=== PATIENT | female | born 1965 | race Two or more races ===

== ENCOUNTER 2018-01-31 19:44 | Emergency (ER) | payer OTHER ==
[~2018-01-31] VITALS: Ht 162.6 cm; Wt 81.6 kg
[2018-01-31] MEDS ORDERED: SODIUM CHLORIDE 0.9% 500 ML IVB ONE (20:23)
[2018-01-31 20:50] LABS: Basophils # (auto) 0.1 uL; Eosinophils # (auto) 0.2 uL; Eosinophils % (auto) 2.5 % (0.0-7.0); Hematocrit 39.2 % (36.0-46.0); Hemoglobin 12.9 g/dL (12.2-16.2); Lymphocytes # (auto) 1.2 uL; Lymphocytes % (auto) 14.7 % (10.0-50.0); Mean Corpuscular Hemoglobin 30.9 pg (28.0-32.0); Mean Corpuscular Hgb Conc. 32.9 g/dL (32.0-36.0); Monocytes # (auto) 0.6 uL; Monocytes % (auto) 6.5 % (0.0-12.0); Neutrophils # (auto) 6.4 uL; Neutrophils % (auto) 75.3 % (37.0-80.0); Platelet Count (auto) 248 10^3/uL (140-450); Red Blood Cells 4.17 10^6/uL (4.0-5.20); Red Cell Distribution Width 17.4 % (11.8-14.3); White Blood Cell 8.5 10^3/uL (4.4-10.8)
[2018-01-31 21:05] LABS: Acetaminophen < 2.0 ug/mL (10-30); Salicylate < 1.7 mg/dL (2.8-20.0)
[2018-01-31 21:06] LABS: Albumin 3.2 g/dL (3.4-5.0); Anion Gap 8 (5-15); Blood Urea Nitrogen 21 mg/dL (7-18); Calcium 8.2 mg/dL (8.5-10.1); Carbon Dioxide 18 mmol/L (21-32); Chloride 122 mmol/L (98-107); Glucose 124 mg/dL (74-106); Sodium 148 mmol/L (136-145)
[2018-01-31 21:10] LABS: Alanine Aminotransferase 24 U/L (13-56); Alkaline Phosphatase 80 U/L (45-117); Aspartate Aminotransferase 26 U/L (15-37); BUN/Creatinine Ratio 25.9; Bilirubin, Total 0.3 mg/dL (0.2-1.0); Blood Alcohol < 3.0 mg/dL (0-5); GFR African American 95 mL/min; GFR Non-African American 79 mL/min
[2018-01-31 22:08] LABS: Alcohol, Urine < 3.0 mg/dL (0-5); Amphetamine Screen, Urine NEGATIVE (NEGATIVE); Barbiturate Scree,Urine NEGATIVE (NEGATIVE); Benzodiazephine Screen, Urine NEGATIVE (NEGATIVE); Cannabinoid Screen, Urine NEGATIVE (NEGATIVE); Cocaine Screen, Urine NEGATIVE (NEGATIVE); Opiate Scree,Urine NEGATIVE (NEGATIVE); Phencyclidine Screen, Urine NEGATIVE (NEGATIVE)
[2018-02-01 09:45] LABS: Albumin 2.9 g/dL (3.4-5.0); Calcium 8.2 mg/dL (8.5-10.1); Potassium 3.8 mmol/L (3.5-5.1)
[2018-02-01 09:48] LABS: BUN/Creatinine Ratio 21.9; Bilirubin, Total 0.3 mg/dL (0.2-1.0); Total Protein 6.4 g/dL (6.4-8.2)
[2018-02-01 14:48] VITALS: BP 142/73
== END 2018-02-01 14:57 | disposition short-term general hospital (02) ==
LOC: EDBD 19:44 → ER 19:56
DX: T42.4X2A Poisoning by benzodiazepines, intentional self-harm, initial encounter (principal); F41.9 Anxiety disorder, unspecified; Z98.51 Tubal ligation status; Y92.89 Other specified places as the place of occurrence of the external cause
CPT/HCPCS: 36415; 80053; 80307; 80320; 80329; 85025; 93005; 94761; 96360